=== PATIENT | female | born 1995 | race Caucasian/White ===

== ENCOUNTER 2024-01-26 19:58 | Emergency (ER) | payer SELFPAY ==
[~2024-01-26] VITALS: Ht 170.2 cm; Wt 54.5 kg
[2024-01-26 20:12] VITALS: BP 106/72; PULSE 92; RESP 18; TEMP 98.9; O2SAT 98
[2024-01-27] MEDS ORDERED: AZIT250T12 MT (00:02)
[2024-01-27] MEDS: DEXAMETHASONE 10 MG/ML VIAL PO ONE (00:29)
== END 2024-01-27 00:32 | disposition home or self-care (01) ==
LOC: ER 19:58
DX: J03.90 Acute tonsillitis, unspecified (principal); Z20.822 Contact with and (suspected) exposure to COVID-19
CPT/HCPCS: 99284; 71045; 87426; 87804 ×2; J1100